=== PATIENT | female | born 1995 | race Two or more races ===

== ENCOUNTER 2017-11-28 15:48 | Emergency (ER) | payer SELFPAY ==
[~2017-11-28] VITALS: Ht 149.9 cm; Wt 54.4 kg
[2017-11-28 17:10] LABS: BILIRUBIN,URINE SMALL (NEG); COLOR,URINE YELLOW; NITRITE,URINE NEGATIVE (NEG); PH,URINE 5.5; PROTEIN,URINE 30 mg/dL (NEG-TRACE); UROBILINOGEN,URINE 0.2 mg/dL (0.2 mg/dL)
[2017-11-28 17:15] LABS: CLARITY,URINE HAZY
[2017-11-28 17:17] LABS: RBC,URINE RARE /HPF (0-2); WBC,URINE OCC /HPF (0-4)
[2017-11-28 17:18] LABS: BACTERIA,URINE MANY /HPF (0-FEW); SQUAMOUS EPITHELIAL CELL,UR MANY /LPF
--- NOTE | 2017-11-28 17:40 | PHYS DOC ---
Past Medical History Past Medical History: No Pertinent History Past Surgical History: No Surgical History Alcohol Use: None Drug Use: None Adult General Chief Complaint Chief Complaint: VAGINAL BLEEDING HPI HPI Patient is a 22 year old female who complains of light pink blood on the toilet tissue after urinating today. Patient states she is her last menstrual period was on October 18, 2017. Patient states she had 3 positive tests at home on November. She denies any fever, nausea, vomiting, pelvic pain, abdominal pain, cramping, or low back pain. She denies any increased urinary frequency, hematuria, burning with urination, or inability to void. Patient states this is her first . She denies any medical, or surgical history. She does not take any medications and is not allergic to any medications currently she states that her discomfort is a 0 out of 10 on the pain scale. Review of Systems Review of Systems Constitutional: Denies fever or chills [] GI: Denies abdominal pain, nausea, vomiting, bloody stools or diarrhea [] : Denies increased urinary frequency, difficulty voiding, dysuria. or hematuria; reports light pink vaginal bleeding on toilet tissue after voiding Musculoskeletal: Denies back pain or joint pain [] Integument: Denies rash or skin lesions [] Neurologic: Denies headache, focal weakness or sensory changes [] All other systems were reviewed and found to be within normal limits, except as documented in this note. Allergies Allergies Allergies Coded Allergies Type Severity Reaction Last Updated Verified No Known Drug Allergies 11/28/17 No Physical Exam Physical Exam Constitutional: Well developed, well nourished, no acute distress, non-toxic appearance. [] HENT: Normocephalic, atraumatic, bilateral external ears normal, nose normal. [ ] Eyes: PERRLA, conjunctiva normal, no discharge. [] Pelvic Exam: Behaviour Support Teacher present Abdomen: soft. active bowel sounds x4, Nontender External Genitalia: Normal Skin Speculum: Normal vaginal mucosa, small amount of white vaginal discharge, light amount of dark red cervical discharge noted Bimanual: No adnexal masses or tenderness, No CMT Skin: Warm, dry, no erythema, no rash. [] Back: No tenderness, no CVA tenderness. [] Extremities: No tenderness, no cyanosis, no clubbing, ROM intact, no edema. [] Neurologic: Alert and oriented X 3, normal motor function, normal sensory function, no focal deficits noted. [] Psychologic: Affect normal, judgement normal, mood normal. [] Current Patient Data Vital Signs Vital Signs Date Time Temp Pulse Resp B/P (MAP) Pulse Ox O2 Delivery O2 Flow Rate FiO2 11/28/17 21:10 98.2 85 16 113/61 98.2 11/28/17 16:43 99 Room Air Lab Values Laboratory Tests Test 11/28/17 16:30 11/28/17 16:37 11/28/17 19:45 Urine Collection Type Unknown Urine Color Yellow Urine Clarity Hazy Urine pH 5.5 Urine Specific [place] >=1.030 Urine Protein 30 mg/dL (NEG-TRACE) Urine Glucose (UA) Negative mg/dL (NEG) Urine Ketones (Stick) >=80 mg/dL (NEG) Urine Blood Large (NEG) Urine Nitrite Negative (NEG) Urine Bilirubin Small (NEG) Urine Urobilinogen Dipstick 0.2 mg/dL (0.2 mg/dL) Urine Leukocyte Esterase Negative (NEG) Urine RBC Rare /HPF (0-2) Urine WBC Occ /HPF (0-4) Urine Squamous Epithelial Cells Many /LPF Urine Bacteria Many /HPF (0-FEW) Urine Mucus Marked /LPF POC Urine HCG, Qualitative Hcg positive (Negative) Maternal Serum HCG Beta Subunit 58944 mIU/mL (0-5) H Microbiology 11/28/17 Wet Prep - Final, Complete EKG EKG [] Radiology/Procedures Radiology/Procedures IMAGING REPORT Signed PATIENT: ANDREW SHOEMAKER ACCOUNT: [id number] : 1995 LOCATION: ER AGE: 22 SEX: F EXAM STATUS: REG ER ORD. PHYSICIAN: LENY PRIETO APRN REASON: vaginal bleeding- PROCEDURE: PREG 1ST TRIMESTER PREG 1ST TRIMESTER History: Vaginal bleeding, Comparison: None. Findings: Multiple transabdominal sonographic images of the pelvis is identified. Uterus measured 6.5 x 4.7 x 5.4 cm. There is a single intrauterine gestational sac. Right ovary measured 3.3 x 2.4 x 2.5 cm. There is a hypoechoic focus of the right ovary about 2.9 x 2 cm x 1.9 cm. There is normal low resistance vascularity of the right ovary. Left ovary measured 3 x 1.3 x 1.8 cm with normal low resistance vascularity. No significant free fluid is demonstrated. Transvaginal ultrasound: Multiple transvaginal sonographic images of the pelvis are submitted. There is again single intrauterine gestational sac with identifiable pole and demonstrable cardiac activity. cardiac activity was 136 bpm. Gestational sac morphology is within normal limits. Lueders-rump length measurement of 0.54 cm corresponds with 6 weeks 2 days. Adjusted ultrasound age is 6 weeks 2 days with estimated delivery date of 07/22/2018. LMP age is 6 weeks 3 days with estimated delivery date of 07/21/2018. Amniotic fluid volume is considered within normal limits. anatomy and placenta are not well visualized at this age of the . Right ovary measured about 5.2 x 1.9 x 2.3 cm. There is hypoechoic lesion of the right ovary about 2.5 x 1.7 x 2 cm, nearly anechoic with increased through transmission. There is normal low resistance vascularity of the right ovary. Left ovary measured 2.3 x 1.6 x 2 cm. No free fluid is demonstrated. Impression: 1. There is a single viable intrauterine , adjusted ultrasound age of 6 weeks 2 days with estimated delivery date of 07/22/2018. There is likely corpus luteal cyst of the right ovary. Electronically signed by: Micah Anderson MD (11/28/2017 7:01 PM) [facility] DICTATED and SIGNED BY: MICAH ANDERSON MD DATE: 11/28/17 185 [] Course & Med Decision Making Course & Med Decision Making Pertinent Labs and Imaging studies reviewed. (See chart for details) [] Dragon Disclaimer Dragon Disclaimer This electronic medical record was generated, in whole or in part, using a voice recognition dictation system. Departure Departure Impression: Primary Impression: Bleeding in early Additional Impression: Threatened miscarriage in early Disposition: 01 HOME, SELF-CARE Condition: STABLE Referrals: NO PCP (PCP) Patient Instructions: Threatened Miscarriage, [id number], Vaginal Bleeding During , First Trimester Additional Instructions: You were given Rhogam today because your blood type is O- and you were experiencing vaginal bleeding. Your ultrasound revealed a that measures 6 weeks and 2 days gestation with an estimated due date of 07/22/18. Recommend pelvic rest until follow-up. Follow up with your cardiac cath lab radiology technologist or Dr. Moore's office in 1-2 days. Call in the morning to schedule an appointment. Return to the ER if your symptoms worsen. Problem Qualifiers LENY PRIETO APRN Nov 28, 2017 17:40
--- NOTE | 2017-11-28 19:05 | RAD ---
PREG 1ST TRIMESTER History: Vaginal bleeding, Comparison: None. Findings: Multiple transabdominal sonographic images of the pelvis is identified. Uterus measured 6.5 x 4.7 x 5.4 cm. There is a single intrauterine gestational sac. Right ovary measured 3.3 x 2.4 x 2.5 cm. There is a hypoechoic focus of the right ovary about 2.9 x 2 cm x 1.9 cm. There is normal low resistance vascularity of the right ovary. Left ovary measured 3 x 1.3 x 1.8 cm with normal low resistance vascularity. No significant free fluid is demonstrated. Transvaginal ultrasound: Multiple transvaginal sonographic images of the pelvis are submitted. There is again single intrauterine gestational sac with identifiable pole and demonstrable cardiac activity. cardiac activity was 136 bpm. Gestational sac morphology is within normal limits. Rosa Sanchez-rump length measurement of 0.54 cm corresponds with 6 weeks 2 days. Adjusted ultrasound age is 6 weeks 2 days with estimated delivery date of 07/22/2018. LMP age is 6 weeks 3 days with estimated delivery date of 07/21/2018. Amniotic fluid volume is considered within normal limits. anatomy and placenta are not well visualized at this age of the . Right ovary measured about 5.2 x 1.9 x 2.3 cm. There is hypoechoic lesion of the right ovary about 2.5 x 1.7 x 2 cm, nearly anechoic with increased through transmission. There is normal low resistance vascularity of the right ovary. Left ovary measured 2.3 x 1.6 x 2 cm. No free fluid is demonstrated. Impression: 1. There is a single viable intrauterine , adjusted ultrasound age of 6 weeks 2 days with estimated delivery date of 07/22/2018. There is likely corpus luteal cyst of the right ovary. Electronically signed by: Micah Hardy MD (11/28/2017 7:01 PM) [facility]
[2017-11-28 21:10] VITALS: BP 113/61
[2017-11-30 14:31] LABS: GC PROBE Negative (Negative)
== END 2017-11-28 22:15 | disposition home or self-care (01) ==
LOC: ER 15:48
DX: O20.0 Threatened abortion (principal); Z3A.01 Less than 8 weeks gestation of pregnancy
CPT/HCPCS: 36415; 36430; 76801; 81001; 81025; 84702; 86850; 86900; 86901; 87086; 87491; 87591; 99285; J2791; Q0111

== ENCOUNTER 2018-01-01 13:26 | Emergency (ER) | payer OTHER ==
[~2018-01-01] VITALS: Ht 149.9 cm; Wt 54.0 kg
[2018-01-01 13:55] VITALS: BP 114/61
--- NOTE | 2018-01-01 14:15 | PHYS DOC ---
Past Medical History Past Medical History: No Pertinent History Past Surgical History: No Surgical History Alcohol Use: None Drug Use: None Adult General Chief Complaint Chief Complaint: EARACHE/EAR PAIN [facility] HPI Patient is a 22 year old female who presents with left ear pain, headache since yesterday. Patient rates her pain a 7 out of 10. Patient states she is 11 weeks . Patient denies any past medical history and states she is only taking vitamins. Patient has no known drug allergies. Review of Systems Review of Systems Constitutional: Denies fever or chills [] Eyes: Denies change in visual acuity, redness, or eye pain [] HENT: Denies nasal congestion or sore throat. Left ear pain. [] Respiratory: Denies cough or shortness of breath [] Cardiovascular: No additional information not addressed in HPI [] GI: Denies abdominal pain, nausea, vomiting, bloody stools or diarrhea [] : Denies dysuria or hematuria [] Musculoskeletal: Denies back pain or joint pain [] Integument: Denies rash or skin lesions [] Neurologic: Headache. Denies focal weakness or sensory changes [] Endocrine: Denies polyuria or polydipsia [] All other systems were reviewed and found to be within normal limits, except as documented in this note. Allergies Allergies Allergies Coded Allergies Type Severity Reaction Last Updated Verified No Known Drug Allergies 11/28/17 No Physical Exam Physical Exam Constitutional: Well developed, well nourished, no acute distress, non-toxic appearance. [] HENT: Normocephalic, atraumatic, bilateral external ears normal, oropharynx moist, no oral exudates, nose normal. [] Eyes: PERRLA, EOMI, conjunctiva normal, no discharge. [] Neck: Normal range of motion, no tenderness, supple, no stridor. [] Cardiovascular:Heart rate regular rhythm, no murmur [] Lungs & Thorax: Bilateral breath sounds clear to auscultation [] Abdomen: Bowel sounds normal, soft, no tenderness, no masses, no pulsatile masses. [] Skin: Warm, dry, no erythema, no rash. [] Back: No tenderness, no CVA tenderness. [] Extremities: No tenderness, no cyanosis, no clubbing, ROM intact, no edema. [] Neurologic: Alert and oriented X 3, normal motor function, normal sensory function, no focal deficits noted. [] Psychologic: Affect normal, judgement normal, mood normal. [] Current Patient Data Vital Signs Vital Signs Date Time Temp Pulse Resp B/P (MAP) Pulse Ox O2 Delivery O2 Flow Rate FiO2 01/01/18 13:55 98.4 114 18 114/61 (78) 97 Room Air 98.4 EKG EKG [] Radiology/Procedures Radiology/Procedures [] Course & Med Decision Making Course & Med Decision Making Patient is a 22 year old female who presents with left ear pain, headache since yesterday. Patient rates her pain a 7 out of 10. Patient states she is 11 weeks . Patient denies any past medical history and states she is only taking vitamins. Patient has no known drug allergies. Patient denies any current illness or sinus symptoms. Patient denies throat pain. Patient denies cough or chest pain. Patient denies any shortness of air. Patient denies any abdominal pain, nausea, vomiting. Patient states she has not taken any pain medication. On examination patient's bilateral ear tympanic membranes are pearly white. Patient's throat is pink and without exudates. Patient has no sinus tenderness. Mucous membranes are moist. Patient skin is pink warm and dry. Patient is afebrile. Patient's lungs are clear to auscultation. Patient denies any urinary symptoms. He shouldn't is told to follow-up with her OB doctor if she begins running a fever, vomiting, or left ear pain becomes more intense. Patient to take Tylenol for any kind of pain or fever. Patient is stable and is discharged home. [] Dragon Disclaimer Dragon Disclaimer This electronic medical record was generated, in whole or in part, using a voice recognition dictation system. Departure Departure Impression: Primary Impression: Ear pain Disposition: HOME, SELF-CARE Condition: STABLE Referrals: NO PCP (PCP) Patient Instructions: General Headache Without Cause Additional Instructions: Follow up with your primary care doctor or you OB doctor if symptoms become worse. Take Tylenol for pain. Problem Qualifiers Primary Impression: Ear pain Laterality: left Qualified Codes: H92.02 - Otalgia, left ear YANDY ROSENBAUM RECIPROCATING DRILL OPERATOR Jan 01, 2018 14:15
== END 2018-01-01 14:20 | disposition home or self-care (01) ==
LOC: ER 13:26
DX: O26.891 Other specified pregnancy related conditions, first trimester (principal); H92.02 Otalgia, left ear; R51 Headache; Z3A.11 11 weeks gestation of pregnancy
CPT/HCPCS: 99281

== ENCOUNTER 2018-07-17 11:30 | Inpatient (IN) | payer OTHER ==
[~2018-07-17] VITALS: Ht 152.4 cm; Wt 68.9 kg
[2018-07-17] MEDS ORDERED: fentaNYL PF VIAL 100 MCG/2 ML VIAL IV PRN (11:45)
[2018-07-17] MEDS ORDERED: AMPICILLIN SODIUM 2 GM in IV NORMAL SALINE 100ML 100 ML IV ONE (11:45)
[2018-07-17] MEDS ORDERED: 0.9 % SODIUM CHLORIDE 10 ML DISP.SYRIN. IV PRN ×2 (11:45→16:15)
[2018-07-17] MEDS ORDERED: BUTORPHANOL 2 MG/ML VIAL. IV PRN (11:45)
[2018-07-17] MEDS ORDERED: ONDANSETRON PF 4 MG/2 ML VIAL. IV PRN ×2 (11:45→12:30)
[2018-07-17] MEDS ORDERED: OXYTOCIN 30 UNIT/500 ML PREMIX 500 ML IV PRN ×3 (11:45→16:15)
[2018-07-17] MEDS ORDERED: AMPICILLIN SODIUM 1 GM in IV NORMAL SALINE 50ML 50 ML IV SCH ×2 (11:45→16:00)
[2018-07-17] MEDS ORDERED: LIDOCAINE 1% PF 30 ML VIAL. INJ PRN (11:45)
[2018-07-17] MEDS ORDERED: TERBUTALINE 1 MG/ML VIAL. SQ PRN (11:45)
[2018-07-17 11:49] VITALS: BP 136/85
[2018-07-17] MEDS: IV RINGERS,LACTATED 1000ML 1,000 ML IV SCH ×3 (11:58→23:03)
[2018-07-17 12:02] LABS: BASO % 0 % (0-3); EOS % 0 % (0-3); HEMATOCRIT 34.6 % (36.0-47.0); HEMOGLOBIN 11.6 g/dL (12.0-15.5); LYMPH # 1.2 x10^3/uL (1.0-4.8); LYMPH % 10 % (24-48); MEAN CORPUSCULAR HEMOGLOBIN 29 pg (25-35); MEAN CORPUSCULAR HGB CONC 33 g/dL (31-37); MEAN CORPUSCULAR VOLUME 87 fL (79-100); MONO # 0.6 x10^3/uL (0.0-1.1); MONO % 5 % (0-9); NEUT % 84 % (31-73); PLATELET COUNT 157 x10^3/uL (140-400); RED BLOOD COUNT 3.99 x10^6/uL (3.50-5.40); WHITE BLOOD COUNT 11.9 x10^3/uL (4.0-11.0)
[2018-07-17] MEDS ORDERED: ROPIVacaine 0.2% PF 10 ML VIAL. ONE ×4 (12:27→15:33)
[2018-07-17] MEDS ORDERED: NALOXONE 0.4 MG/ML VIAL. IV PRN (12:30)
[2018-07-17] MEDS ORDERED: fentaNYL PF VIAL 100 MCG/2 ML VIAL EPI ONE (12:30)
[2018-07-17] MEDS ORDERED: ePHEDrine PF IN SALINE 50 MG/10 ML SYRINGE. IV PRN (12:30)
[2018-07-17] MEDS: L&D EPIDURAL SYRINGE 50 ML EPID PRN ×2 (12:36→15:06)
[2018-07-17] MEDS ORDERED: CITRIC ACID/SODIUM CITRATE 30 ML SOLUTION. ONE ×2 (13:00→15:58)
--- NOTE | 2018-07-17 13:24 | PDOC1 ---
OB - History Hx of Present Care: Good Care Ultrasounds: Normal mid trimester US Obstetrical Complications: None Medical Complications: None Past Family/Social History * Past Medical, Surgical, Family and Obstetric Histories reviewed from chart. Rubella: Immune RPR/VDRL: Negative GBS Status: Positive HBsAG: Negative OB - Chief Complaint & HPI Date of Admission: Date of Admission: Jul 17, 2018 at 11:30 Chief Complaint/History : 1 Para: 0 EGA: 39 Reason for admission: active labor Indication for induction: post dates Indication for : desires repeat Admission Nurse Assessment Rev: Yes OB - Admission Exam Physical Exam Vitals: VS - Last 72 Hours, by Label Date Time Temp Pulse Resp B/P (MAP) Pulse Ox O2 Delivery O2 Flow Rate FiO2 07/17/18 12:37 16 07/17/18 12:36 16 Room Air 07/17/18 11:49 98.3 96 20 136/85 (102) Room Air 98.3 HEENT: Normal Heart: Regular Rate Lungs: Clear Abdomen: Gravid, Non tender, Soft Extremities: Edema Reflexes: Normal Cervical Dilatation: 7cm Effacement: 75% Station: 0 Membranes: Intact Heart Rate: Normal Accelerations: Accelerations Present Decelerations: No decelerations Contractions on Admission: 6-10 Minutes Apart Intensity: Moderate Text A: 39 wks IUP Active labor GBS positive P: Admit for labor management. Start Ampicillin for GBS treatment. MARIN DARDEN Jr, MD Jul 17, 2018 13:24
[2018-07-17 13:34] LABS: BILIRUBIN,URINE NEGATIVE (NEG); CLARITY,URINE CLEAR; COLOR,URINE YELLOW; NITRITE,URINE NEGATIVE (NEG); PH,URINE 5.5; PROTEIN,URINE 30 mg/dL (NEG-TRACE); UROBILINOGEN,URINE 0.2 mg/dL (0.2 mg/dL)
[2018-07-17 13:37] LABS: BARBITURATES NEG (NEG); BENZODIAZEPINES NEG (NEG); CANNABINOIDS NEG (NEG); COCAINE NEG (NEG); METHADONE NEG (NEG); OPIATES NEG (NEG); PHENCYCLIDINE NEG (NEG)
[2018-07-17 13:43] LABS: AMPHETAMINE/METHAMPHETAMINE NEG (NEG)
[2018-07-17 13:50] LABS: BACTERIA,URINE 0 /HPF (0-FEW); RBC,URINE >40 /HPF (0-2); SQUAMOUS EPITHELIAL CELL,UR MANY /LPF; WBC,URINE 0 /HPF (0-4)
[2018-07-17] MEDS ORDERED: fentaNYL PF VIAL 100 MCG/2 ML VIAL ONE (15:43)
[2018-07-17] MEDS ORDERED: MORPHINE PF 5 MG/10 ML VIAL. ONE (15:43)
[2018-07-17] MEDS ORDERED: CITRIC ACID/SODIUM CITRATE 30 ML SOLUTION. PO ONE (16:00)
[2018-07-17] MEDS ORDERED: ceFAZolin 1GM IVPB FOR OMNI 1 GM/50 ML BAG IV ONE (16:00)
[2018-07-17] MEDS ORDERED: ceFAZolin SODIUM 1 GM in IV DEXTROSE 5% 50 ML IV ONE (16:00)
[2018-07-17] MEDS ORDERED: MAGNESIUM HYDROXIDE 2,400 MG/30 ML ORAL.SUSP. PO PRN (16:15)
[2018-07-17] MEDS ORDERED: diphenhydrAMINE HCL 25 MG CAPSULE PO PRN (16:15)
[2018-07-17] MEDS ORDERED: PHENYLEPH/MINERAL OIL/PETROLAT RECTAL OINTMENT 28GM TUBE. RC PRN (16:15)
[2018-07-17] MEDS ORDERED: MAG HYDROX/ALUMINUM HYD/SIMETH 30 ML ORAL.SUSP PO PRN (16:15)
[2018-07-17] MEDS ORDERED: SIMETHICONE 80 MG TAB.CHEW PO PRN (16:15)
[2018-07-17] MEDS ORDERED: ACETAMINOPHEN 325 MG TABLET. PO PRN (16:15)
[2018-07-17] MEDS ORDERED: BENZOCAINE 20% TOPICAL AEROSOL SPRAY 57GM CAN. TP PRN (16:15)
[2018-07-17] MEDS ORDERED: IBUPROFEN 400 MG TABLET. PO PRN (16:15)
[2018-07-17] MEDS ORDERED: HYDROCORTISONE 1% TOPICAL OINTMENT 30GM TUBE. TP PRN (16:15)
[2018-07-17] MEDS ORDERED: ZOLPIDEM 5 MG TABLET. PO PRN (16:15)
[2018-07-17] MEDS ORDERED: ONDANSETRON PF 4 MG/2 ML VIAL. ONE (17:07)
[2018-07-17] MEDS ORDERED: METOCLOPRAMIDE HCL 10 MG/2 ML VIAL. ONE (17:08)
[2018-07-17] MEDS ORDERED: OXYTOCIN 10 UNIT/ML VIAL. ONE (17:08)
[2018-07-17 20:50] VITALS: BP 118/65
[2018-07-17] MEDS ORDERED: KETOROLAC 30 MG/ML VIAL. IV PRN (21:30)
[2018-07-17 21:50] VITALS: BP 111/64
[2018-07-18 04:48] VITALS: BP 104/50
[2018-07-18 06:57] VITALS: BP 109/53
[2018-07-18] MEDS ORDERED: oxyCODONE/APAP 5/325 1 TAB TABLET PO PRN (11:30)
[2018-07-18 11:45] VITALS: BP 112/66
[2018-07-18] MEDS: oxyCODONE/APAP 5/325 1 TAB TABLET PO PRN ×2 (11:49→17:05)
--- NOTE | 2018-07-18 12:53 | OP ---
DATE OF SURGERY: 07/17/2018 PREOPERATIVE DIAGNOSES: Term intrauterine , active labor, primary transverse arrest of dilatation. POSTOPERATIVE DIAGNOSES: Term intrauterine , active labor, primary transverse arrest of dilatation. PROCEDURE: Primary low transverse . SURGEON: Bi Moore M.D. KICK PRESS OPERATOR: None. ANESTHESIA: Regional. ESTIMATED BLOOD LOSS: 700 mL. FLUIDS: Crystalloid. SPECIMENS: None. COMPLICATIONS: None. FINDINGS: Female infant, Apgars 8, 9 and 9, weight 8 pounds 2 ounces. Normal uterus, tubes, and ovaries. COMPLICATIONS: None. CONDITION: Stable. DESCRIPTION OF PROCEDURE: After risks, benefits, indications, alternatives discussed with the patient and the patient's family, the patient was brought to the OR theater, placed in supine position with left lateral uterine displacement. After adequate spinal anesthesia, the patient was prepped and draped in usual sterile manner. A low transverse Pfannenstiel incision was made sharply with Bovie cautery, carried down through subcutaneous tissue with Bovie cautery. Rectus fascia was nicked in midline with Bovie cautery, extended laterally in each direction with Bovie cautery. Upper edge of rectus fascia was grasped x 2 with Andrés clamps, elevated above rectus muscle, both bluntly and sharply with gloved hand and Bovie cautery. The same procedure was carried out on lower edge of rectus fascia. Rectus muscle split in the midline, extended superiorly and inferiorly with Bovie cautery. Parietal peritoneum was entered bluntly with gloved hand. With gentle stretch on rectus muscle, room was made for delivery of the . Saw retractor was placed within the pelvic cavity. Sponges placed in the gutters bilaterally. A low transverse hysterotomy incision was made sharply with a scalpel, with care not to injure underlying structures. Clear fluid was noted. The incision was extended superiorly and laterally with gloved hand. Gloved hand was placed in the lower uterine segment, used to elevate the head with fundal pressure from the respiratory therapy assistant. was delivered on anterior abdominal wall. Infant cried spontaneously and moved all extremities. Cord was doubly clamped, transected cord between two clamps. handed to nursing care in attendance and cord blood samples were taken, placenta delivered spontaneously intact, 3-vessel cord. Uterus wiped clean of any adherent membranes. Low transverse hysterotomy incision was reapproximated with 0 Monocryl in a running locking manner, imbricated with 0 Monocryl horizontal mattress stitch fashion. Bladder flap was reapproximated with 3-0 Vicryl in a running manner. Sponges were removed from the gutters. Tubes and ovaries appeared normal. Good hemostasis was assured. Saw retractor was removed. Parietal peritoneum was reapproximated with 3-0 Vicryl in a running manner. This stitch also reapproximated rectus muscle to the midline. Areas of bleeding in rectus muscle controlled with Bovie cautery. Rectus fascia was reapproximated with 0 PDS barbed suture. Subcutaneous tissue was irrigated copiously with warm normal saline. Elizabeth fascia reapproximated with 2-0 plain. Skin was reapproximated with Insorb govind. Sponge, needle, instrument counts correct x 2 per nursing staff. BI MOORE MD DR: [email or web address]/arnoldo JOB#: [id number] / [id number]
--- NOTE | 2018-07-18 13:59 | PDOC ---
Provider Note Provider Note CBC - BMP 07/18/18 07:15 doing well VSS Dressing CDI FU in Am JORDIN VELEZ MD Jul 18, 2018 13:59
[2018-07-18 17:00] VITALS: BP 118/78
[2018-07-18] MEDS: FERROUS SULFATE 325 MG TABLET. PO SCH (17:05)
[2018-07-18] MEDS: IBUPROFEN 400 MG TABLET. PO SCH (17:06)
[2018-07-18 23:06] VITALS: BP 97/59
[2018-07-19] MEDS: IBUPROFEN 400 MG TABLET. PO SCH ×3 (02:01→20:14)
[2018-07-19 06:03] VITALS: BP 106/58
[2018-07-19 11:00] VITALS: BP 115/69
--- NOTE | 2018-07-19 14:50 | PDOC ---
BRIEF OPERATIVE NOTE Date: Jul 17, 2018 Pre-Op Diagnosis BRIEF OPERATIVE NOTE BRIEF OPERATIVE NOTE Pre-Op Diagnosis TIUP primary transverse arrest of dilatation Post-Op Diagnosis same Procedure Performed Primary LTC/S Surgeon Teresa Anesthesia Type: Regional Blood Loss 700cc Findings Female 8#2oz Complications None JORDIN VELEZ MD, DANIEL K MD Jul 19, 2018 14:50
--- NOTE | 2018-07-19 14:53 | PDOC ---
Provider Note Provider Note Doing well VSS Dressing CDI Fu in am JORDIN VELEZ MD Jul 19, 2018 14:53
[2018-07-19] MEDS: FERROUS SULFATE 325 MG TABLET. PO SCH ×2 (17:00→17:49)
[2018-07-19 17:18] VITALS: BP 120/82
[2018-07-19 22:51] VITALS: BP 111/70
[2018-07-20 06:00] VITALS: BP 122/77
[2018-07-20] MEDS: FERROUS SULFATE 325 MG TABLET. PO SCH ×2 (07:28→17:51)
[2018-07-20] MEDS: IBUPROFEN 400 MG TABLET. PO SCH ×2 (07:29→17:51)
[2018-07-20 08:00] VITALS: BP 110/66
[2018-07-20] MEDS ORDERED: DIPHTH,PERTUSS(ACELL),TET TOX 0.5 ML DISP.SYRIN. VAX IM ONE (09:00)
[2018-07-20 09:06] LABS: BASO % 0 % (0-3); EOS # 0.2 x10^3/uL (0.0-0.7); EOS % 1 % (0-3); HEMATOCRIT 29.2 % (36.0-47.0); HEMOGLOBIN 9.7 g/dL (12.0-15.5); LYMPH # 0.9 x10^3/uL (1.0-4.8); LYMPH % 8 % (24-48); MEAN CORPUSCULAR HEMOGLOBIN 29 pg (25-35); MEAN CORPUSCULAR HGB CONC 33 g/dL (31-37); MEAN CORPUSCULAR VOLUME 88 fL (79-100); MONO # 0.7 x10^3/uL (0.0-1.1); MONO % 6 % (0-9); NEUT # 10.1 x10^3uL (1.8-7.7); NEUT % 85 % (31-73); PLATELET COUNT 156 x10^3/uL (140-400); RED BLOOD COUNT 3.32 x10^6/uL (3.50-5.40); RED CELL DISTRIBUTION WIDTH 15.6 % (11.5-14.5)
[2018-07-20 14:00] VITALS: BP 104/60
[2018-07-20 18:13] VITALS: BP 115/62
[2018-07-20 23:00] VITALS: BP 107/62
[2018-07-21 05:41] VITALS: BP 111/70
[2018-07-21] MEDS: FERROUS SULFATE 325 MG TABLET. PO SCH (07:47)
[2018-07-21] MEDS: IBUPROFEN 400 MG TABLET. PO SCH (07:48)
--- NOTE | 2018-07-21 12:51 | PDOC3 ---
OB DISCHARGE SUMMARY DATE OF ADMISSION: 07/17/18 DATE OF DISCHARGE: 07/21/18 REASON FOR ADMISSION: Onset of labor PROCEDURES: Ultrasound INTRAPARTUM PROCEDURES: : Low Cerv Trans PROCEDURES: None OPERATIONS: None DISCHARGE DIAGNOSIS: Term Delivered DISCHARGE INFORMATION: Activity, Diet HOSPITAL COURSE unremarkable CONDITION AT DISCHARGE Stable JORDIN VELEZ MD Jul 21, 2018 12:51
[2018-07-21] MEDS ORDERED: NAPR-514 PO (12:57)
[2018-07-21] MEDS ORDERED: HYDR-3164 PO (12:57)
[2018-07-21 13:37] VITALS: BP 111/65
--- NOTE | 2018-07-21 14:39 | NUR ---
Discharge Discharge instructions given to patient at this time, no questions or concerns. Patient to follow up with DR Moore in 1 week. Waiting for instructions on baby discharge, will continue to monitor.
== END 2018-07-21 15:36 | disposition home or self-care (01) | DRG 788 ==
LOC: 3 SO LND 11:30 → OBSVTOIN 11:30 → 3 NORTH 20:50
PROVIDERS: ADMIT Specialist; ATTEND Specialist
PROC: 10D00Z1 Extraction of Products of Conception, Low, Open Approach (ICD-10-PCS; principal; 2018-07-17)
DX: O62.0 Primary inadequate contractions (principal); O34.211 Maternal care for low transverse scar from previous cesarean delivery; O99.824 Streptococcus B carrier state complicating childbirth; Z37.0 Single live birth; Z3A.39 39 weeks gestation of pregnancy
CPT/HCPCS: 36415; 80307; 81001; 85014; 85025; 85461; 86592; 86850; 86900; 86901; 90471; 90715; J0290; J0690; J1885; J2270; J2405; J2590; J2765; J2791; J2795; J3010; J7120